=== PATIENT | male | born 1985 | race Two or more races ===

== ENCOUNTER 2025-06-22 00:21 | Emergency (ER) | payer MEDICAID, SELFPAY ==
[2025-06-22 00:22] VITALS: BMI 30.3
--- NOTE | 2025-06-22 00:44 | PC.NURSE ---
pt did not answer
[2025-06-22 00:58] VITALS: BP 182/104; BP 185/106; PULSE 92; RESP 18; TEMP 36.9; O2SAT 100
--- NOTE | 2025-06-22 01:09 | PD.EDRME ---
Rapid Medical Screening Exam RME Arrival date/time: 06/22/25 00:21 Chief Complaint: Abdominal Pain Vital signs: Vital Signs Temperature 98.5 F 06/22/25 00:58 Pulse Rate 92 06/22/25 00:58 Respiratory Rate 18 06/22/25 00:58 Blood Pressure 182/104 H 06/22/25 00:58 Pulse Oximetry (%) 100 06/22/25 00:58 Oxygen Delivery Method Room Air 06/22/25 00:58 Pulse ox on room air 100% Vital signs reviewed by provider: Yes RME Narrative: Patient complains of not going and intermittent times over the week. She was concerned that she is able to obtain. Denies nausea, vomiting, diarrhea. Patient had a bowel movement yesterday.
[2025-06-22 01:46] LABS: Basophils # (Auto) 0.0 Thou/mm3 (0.0-0.2); Basophils % (Auto) 1 % (0-2.5); Eosinophils # (Auto) 0.3 Thou/mm3 (0.0-0.5); Eosinophils % (Auto) 5 % (0-10); Hematocrit 41.4 % (41.0-53.0); Hemoglobin 14.0 g/dL (13.5-16.0); Immature Granulocytes Auto 0.01 Thou/mm3 (0.00-0.00); Lymphocytes # (Auto) 2.3 Thou/mm3 (1.0-4.8); Lymphocytes % (Auto) 36 % (10-50); Mean Corpuscular HGB Conc 33.8 g/dl (31.0-37.0); Mean Corpuscular Hemoglobin 30.0 pg (25.0-35.0); Mean Corpuscular Volume 89 fL (80-100); Monocytes # (Auto) 0.4 Thou/mm3 (0.0-0.8); Monocytes % (Auto) 6 % (0-12); Neutrophils # (Auto) 3.4 Thou/mm3 (1.8-7.7); Neutrophils % (Auto) 53 % (37-80); Nucleated Red Blood Cell # 0.00 Thou/mm3 (0.00-0.00); Nucleated Red Blood Cell % 0 /100 WBC (0); Platelet Count 221 Thou/mm3 (140-440); RDW Standard Deviation 37.8 fL (35.1-43.9); Red Blood Count 4.67 Miln/mm3 (4.50-5.90); White Blood Count 6.4 Thou/mm3 (3.8-10.6)
[2025-06-22 02:11] LABS: Alanine Aminotransferase 9 U/L (10-49); Albumin, Serum 4.2 gm/dL (3.5-5.0); Albumin/Globulin Ratio 1.6 (1.2-2.2); Alkaline Phosphatase 73 U/L (46-116); Anion Gap 7 (7-16); Aspartate Amino Transferase 10 U/L (0-34); BUN/Creatinine Ratio 12 Ratio (12-20); Bilirubin,Total 0.2 mg/dL (0.3-1.2); Blood Urea Nitrogen 13 mg/dL (9-23); Calcium 10.1 mg/dL (8.3-10.6); Calcium (Corrected) 10.1 mg/dL (8.5-10.1); Carbon Dioxide 27.8 mMol/L (20.0-31.0); Chloride 102 mMol/L (98-107); Creatinine (Component) 1.1 mg/dL (0.6-1.3); Estimated Creatinine Clearance 112.1 mL/min (>60); Globulin 2.7 gm/dL (2.3-3.5); Glucose 366 mg/dL (74-106); Lipase 59 U/L (12-53); Magnesium 1.8 mg/dL (1.6-2.6); Osmolality,Calculated 288 (275-295); Potassium 4.0 mMol/L (3.4-5.1); Procalcitonin 0.05 ng/ml (0.0-0.49); Sodium 137 mMol/L (136-145); Total Protein 6.9 gm/dL (5.7-8.2); eGFR > 60 See Note
[2025-06-22 03:07] LABS: Collection Type, Urine Clean Catch
[2025-06-22 03:24] LABS: Bacteria,Urine Rare; Bilirubin,Urine Negative (Negative); Blood,Urine Negative (Negative); Clarity,Urine Clear (Clear/Hazy); Color,Urine Colorless (Lt Yel-Yel); Glucose, Urine 4+ (Negative); Ketones,Urine Trace (Negative); Leukocyte Esterase,Urine Negative (Negative); Nitrite,Urine Negative (Negative); PH,Urine 6.0 (5.0-7.0); Protein,Urine Negative (Neg - Trace); RBC,Urine 6 /hpf (0-3); Specific Gravity,Urine 1.034 (1.001-1.035); Squamous Epithelial Cell,Urine 1 /hpf (0-5); Urobilinogen,Urine Negative mg/dL (0.0-1.0); WBC,Urine 2 /hpf (0-5)
--- NOTE | 2025-06-22 03:28 | PD.EDABDPN ---
ED Abdominal Pain RME/HPI General Chief Complaint: Abdominal Pain Stated complaint: UPPER ABDOMINAL PAIN RADIATES TO LEFT SHOULDER Arrival date/time: 06/22/25 00:21 RME / HPI RME / HPI narrative: Patient complains of not going and intermittent times over the week. She was concerned that she is able to obtain. Denies nausea, vomiting, diarrhea. Patient had a bowel movement yesterday. DR. BRADLEY MAIN ED EVALUATION: Patient presents with ongoing epigastric abdominal pain approximately 1 week duration described as sharp stabbing sensation without radiation or associated nausea and vomiting. Denies fever, although reports occassional chills. Denies dysuria. No change with PO intake. Reports feeling slightly bloated. PMH: DM, HTN. PSH: Unremarkable. Allergies: None. 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 Related Data Home Medications ?Medication ?Instructions ?Recorded ?Confirmed diclofenac potassium 50 mg tablet 50 mg PO TID 11/03/17 11/03/17 methocarbamol 500 mg tablet 500 mg PO Q6H 11/03/17 11/03/17 Previous Rx's ?Medication ?Instructions ?Recorded prednisone 20 mg tablet 60 mg (3 x 20 mg) PO QDAY sciatica 11/03/17 #15 tabs amlodipine 5 mg tablet 5 mg PO QDAY #30 tabs 06/22/25 pantoprazole 20 mg tablet,delayed 20 mg PO QDAY #30 tabs 06/22/25 release (Protonix) promethazine 12.5 mg tablet 12.5 mg PO TID PRN nausea and 06/22/25 vomiting #14 tabs Allergies Allergy/AdvReac Type Severity Reaction Status Date / Time No Known Allergies Allergy Verified 11/03/17 15:50 Review of Systems Review of Systems Systems Reviewed: All systems reviewed, normal except as documented Past Medical History Past Medical History CARDIAC: Positive Hypertension ENDOCRINE: Positive Diabetes Mellitus Type 2 Social History SMOKING STATUS: Former smoker ED Exam Narrative Physical exam: GEN. APPEARANCE: The patient is alert awake oriented X-3 in no distress, lying down comfortably, does not look ill/toxic. Patient has good eye contact. Patient is cooperative. VITALS: All vitals were reviewed and the pulse ox is 99% on room air which is normal according to my interpretation. HEENT: Normocephalic, atraumatic. Pupils are equal and reactive. Oral mucosa is moist. Patent Nares NECK: Supple, nontender, no thyromegaly, no meningismus, no JVD, no step offs CHEST: Symmetrical, atraumatic, and with equal expansion , Nontender on palpation no deformity and no crepitus. CARDIOVASCULAR: Heart regular rhythm no murmur or gallop rub or extra beats. LUNGS: Clear to auscultation bilaterally with symmetrical chest rise. No laboring tachypnea or wheezing. No intercostal subcostal retraction. No rales and no rhonchi. ABDOMEN: Soft, Mild TTP of epigastrium, no Stover's Sign, Mildly distended. There are no abnormal masses palpated. Active and normal bowel sounds. EXTREMITIES: Nontender. No edema. No cyanosis. Patient is able to move all 4 extremities well, with full ROM and good CSM. SKIN: Warm and dry, no jaundice or rashes noted. MUSCULOSKELETAL: No lubar or midline bony tenderness. There is no CVA tenderness. No paraspinal muscle spasm or tenderness. NEURO: Patient is JAIMES x 4, Cranial nerves II through XII grossly intact. There is no focal neurologic deficits noted. GCS is 15, PNS and BENZOL OPERATOR appear grossly intact. PSYCHIATRIC: Patient is in normal mood and affect, cooperative, no SI or HI or hallucinations. Course Quality Measures none Orders Category Date Time Status US abdomen limited Stat Exams 06/22/25 04:06 Completed CBC Stat Lab 06/22/25 01:23 Completed Comprehensive Metabolic Panel Stat Lab 06/22/25 01:23 Completed Lipase Stat Lab 06/22/25 01:23 Completed Magnesium Stat Lab 06/22/25 01:23 Completed Procalcitonin Stat Lab 06/22/25 01:23 Completed Urinalysis Stat Lab 06/22/25 02:39 Completed Lisinopril [Prinivil] Med 06/22/25 03:47 Discontinued 10 mg PO X1 ONE Vital Signs Vital signs: Vital Signs Temperature 98.5 F 06/22/25 00:58 Pulse Rate 92 06/22/25 00:58 Respiratory Rate 18 06/22/25 00:58 Blood Pressure 182/104 H 06/22/25 00:58 Pulse Oximetry (%) 100 06/22/25 00:58 Oxygen Delivery Method Room Air 06/22/25 00:58 Abdominal Pain MDM MDM Narrative MDM Narrative:: Scribe Attestation: I, Constance Simpson, am scribing for and in the presence of Dr. Bradley. Provider Notation: Although this document has been carefully reviewed, there may still be some phonetic and other typographical errors. These errors are purely grammatical due to imperfections in the software program and should not be construed in any way to compromise the substance of the patient's medical care during this visit. Patient presents with ongoing epigastric abdominal pain approximately 1 week duration described as sharp stabbing sensation without radiation or associated nausea and vomiting. Denies fever, although reports occassional chills. Please see PE findings. Laboratory marker, including CBC and serum chemistries, demonstrated elevated BS of 366 with normal CO2 and mildly elevated Lipase of 59. LFT's are essentially normal. UA currently pending. Patient with mild pancreatic inflammation. Patient nontoxic in appearance, hemodynamically stable. Will perform informal bedside US of gall bladder and if unremarkable will be discharged home on PPI and anti-emetic. In addition, discontinued Lisinopril and begin Amlodipine given evidence of mild pancreatitis. Patient data External records reviewed:: [facility] previous records (No recent records available for review) Clinical information provided by:: patient Social determinants that could affect healthcare access:: substance use Patient has the following chronic illnesses:: Type II DM, HTN How is presenting disease/condition affected by chronic disease/condition?: exacerbated by Evaluation data The following diagnostics were reviewed and interpreted by me:: lab results and radiology exam(s) Lab and/or radiology exams considered but not ordered:: None Interpretation Summary: RADIOLOGY Abdominal US: Findings: Gallbladder sludge No gallstones Gallbladder wall 0.2 cm Normal common bile duct 0.3 cm Pancreatic head 3.1 cm Liver 17.6 cm fatty infiltration lobular contour Normal hepatopedal portal venous flow Patent IVC Impression: Negative for cholelithiasis, negative for cholecystitis Normal common bile duct Moderate hepatomegaly suspect primary hepatocellular disease Medications / Prescriptions Medications or Prescriptions considered but not ordered:: None Medication administrations:: Medication Administration History Discontinued Medications Lisinopril (Lisinopril 2.5 Mg Tablet) 10 mg PO X1 ONE Stop: 06/22/25 03:48 Last Admin: 06/22/25 04:20 Dose: 10 mg Documented By: GANESH See above if any Consultations Consultation(s) initiated? (list below): No Diagnosis Differential diagnosis abdominal pain: abdominal pain, calculus of kidney, gastroenteritis, pancreatitis and small bowel obstruction Most likely diagnosis given after review of the tests above:: HTN, Pancreatitis Admission Indicated Admission indicated?: not indicated Explain why admission is indicated or not indicated:: Patient does not meet admission criteria Admission Request Was there a request for admission?: No Disposition Plan Disposition Plan: Discharge Discharge Attestation Discharge Attestation: The patient and all family members were given an opportunity to ask questions and understood the discharge instructions. Discharge instructions specifically effects, indications for sooner follow up or return to the emergency department, and the expected course of current diagnosis. Patient condition: Stable Discharge Plan Plan Patient Disposition: HOME (Self Care) Prescriptions/Referrals Prescriptions/Med Rec: New amlodipine 5 mg tablet 5 mg PO QDAY Qty: 30 1RF promethazine 12.5 mg tablet 12.5 mg PO TID PRN (Reason: nausea and vomiting) Qty: 14 0RF pantoprazole [Protonix] 20 mg tablet,delayed release (DR/EC) 20 mg PO QDAY Qty: 30 1RF No Action methocarbamol 500 mg Tablet 500 mg PO Q6H diclofenac potassium 50 mg Tablet 50 mg PO TID prednisone 20 mg tablet 60 mg PO QDAY Qty: 15 0RF Rx Instructions: administer with food or milk Referrals: Eder Loaiza MD [Primary Care Provider, Family Practice] - In 1 week Problem List Clinical Impression: Hypertension, Pancreatitis Patient/Caregiver Discharge Instructions Discharge Activity: activity as tolerated Diet Instructions: Low-salt. Clear liquid diet x 24 to 48 hours and advance as tolerated. Education Materials: Controlling High Blood Pressure, ED Pancreatitis Additional Instructions: Avoid alcohol, discontinue lisinopril and begin amlodipine this evening. Increase to 1 tablet twice daily if your blood pressure greater than 160/90 additional medication as directed. Follow-up with primary care doctor for repeat evaluation as scheduled. Return if worse Print Language: Kiswahili Stand Alone Forms: Mey Award Info., Patient Portal Info Letter
[2025-06-22 03:49] VITALS: BP 198/106; PULSE 80; RESP 18; TEMP 36.7; O2SAT 97
--- NOTE | 2025-06-22 04:06 | XR_ITS ---
Examination: Abdomen sonogram, Limited Date and time of exam: June 22, 2025, 0422 hrs. Indications: Onset epigastric pain beginning one week ago Technique: Real-time hatch scale transabdominal sonographic images of the upper abdomen obtained. Findings: Gallbladder sludge No gallstones Gallbladder wall 0.2 cm Normal common bile duct 0.3 cm Pancreatic head 3.1 cm Liver 17.6 cm fatty infiltration lobular contour Normal hepatopedal portal venous flow Patent IVC Impression: Negative for cholelithiasis, negative for cholecystitis Normal common bile duct Moderate hepatomegaly suspect primary hepatocellular disease
[2025-06-22 04:20] VITALS: BP 162/102; PULSE 63
--- NOTE | 2025-06-22 05:29 | PRELIM_ITS ---
Right upper quadrant abdominal ultrasound with Doppler and wave Doppler spectral analysis. June 22, 2025 at 0422 hours Clinical history: Gallbladder dz. Technique: Grayscale and color flow images of the right upper quadrant are provided. Hepatic and portal veins were also imaged with color flow images. Comparison: No prior study is available for comparison. Findings: The liver demonstrates increased echogenicity. Hepatomegaly. No intrahepatic biliary ductal dilatation. No gallbladder calculus, wall thickening or pericholecystic fluid is demonstrated. The common bile duct is normal in caliber at 2.8 mm. The pancreas is unremarkable to the extent visualized. The imaged portions of the right kidney are within normal limits. The portal vein is patent with hepatopetal flow and normal wave Doppler spectral analysis. The hepatic veins are patent with normal wave Doppler spectral analysis. The IVC is patent with normal wave Doppler spectral analysis. Impression: Hepatomegaly associated with liver steatosis, suspicious for steatohepatitis. Report Electronically Signed By: Lasha Dorsey 06/22/2025 5:28:45 AM [EST]
[2025-06-22 05:51] VITALS: PULSE 64; RESP 16; O2SAT 99
== END 2025-06-22 05:52 | disposition home or self-care (01) ==
PROVIDERS: Physician Assistant; Emergency Provider Emergency Medicine; PCP Family Medicine
DX: K85.90 Acute pancreatitis without necrosis or infection, unspecified (principal); R16.0 Hepatomegaly, not elsewhere classified; I10 Essential (primary) hypertension; Z87.891 Personal history of nicotine dependence
CPT/HCPCS: 36415; 76705; 80053; 81001; 83690; 83735; 84145; 85025; 99283; A9270